=== PATIENT | female | born 1960 | race Caucasian/White ===

== ENCOUNTER → 2019-03-14 | Outpatient (CLI) | payer SELFPAY ==
--- NOTE | 2019-03-17 09:13 | PCVCIMAG ---
APPROVED REPORT Study performed: 03/14/2019 12:14:52 Exam: Stress Echocardiogram Indication: mitral valve prolapse, palpitations, dyspnea on exertion Patient Location: Echo lab Stress Nurse: Adrienne Barlow RN Status: routine Ht: 5 ft 8 in HR: 78 bpm BP: 120/72 mmHg Rhythm: NSR Procedure The patient underwent an Exercise Stress Test using the Elpidio Protocol. Blood pressure, heart rate, and EKG were monitored. An Echocardiogram was performed by education technician in four stages in quad fashion. At peak stress, four selected images were obtained and placed side by side with resting images for comparison. Stress Test Details Stress Test: Exercise stress testing was performed using a Elpidio protocol. HR Resting HR: 78 bpmMax Heart Rate (APMHR): 162 bpm Max HR Achieved: 155 bpmTarget HR (85% APMHR): 137 bpm % of APMHR: 95 Recovery HR: 92 bpm HR response to stress: Normal HR response to stress BP Resting BP: 120/72 mmHg Max BP: 130/78 mmHg Recovery BP: 110/78 mmHg BP response to stress: Normal blood pressure response to stress. ECG Resting ECG: Sinus Rhythm w/ PVCs Stress ECG: Sinus Rhythm ST Change: Normal Arrhythmia: isolated PVCs Recovery ECG: Sinus Rhythm w/ PVCs Recovery ST Change: Normal Recovery Arrhythmia: PVCs Clinical Reason for Termination: Maximal effort Stress Symptoms: Dyspnea Exercise duration: 9 min 20 sec Highest Stage Achieved: Stage 4: 4.2 mph at 16% grade. Exercise capacity: 11.2 METs Overall Exercise Capacity for Age: Normal Scale: Active Angina Score: None Stress ECG Conclusion 1. subjectively negative for ischemia 2. electricaklly negative for ischemia 3. satisfactory functional capacity Pre-Stress Echo The resting Echocardiogram showed normal left ventricular contractility with an estimated Ejection Fraction of about >55%. The resting echocardiogram demonstrated normal wall motion in all wall segments. Post-Stress Echo The stress Echocardiogram showed normal left ventricular contractility with an estimated Ejection Fraction of about 65%. Compared to rest, there were no stress-induced wall motion abnormalities. Clinical No clinical or ECG evidence for ischemia. Conclusion Clinical Response: Non-ischemic Exercise Capacity: Average Stress ECG Response: Non-ischemic Stress Echo Images: Non-ischemic The left ventricle is normal in size and wall thickness in both the rest and stress images. Mild anterior mitral valve prolapse with mild mitral regurgitation. Mild tricuspid regurgitation with PAP of 34 mmHg. Normal aortic and pulmonic regurgitation and stenosis. 1. low risk study Other Information Study Quality: Adequate <Conclusion> The left ventricle is normal in size and wall thickness in both the rest and stress images. Mild anterior mitral valve prolapse with mild mitral regurgitation. Mild tricuspid regurgitation with PAP of 34 mmHg. Normal aortic and pulmonic regurgitation and stenosis. 1. low risk study
== END | disposition home or self-care (01) ==
LOC: PCVCIMAG 12:59
PROVIDERS: ATTEND Internal Medicine
DX: I08.8 Other rheumatic multiple valve diseases (principal); Z95.4 Presence of other heart-valve replacement; Z82.49 Family history of ischemic heart disease and other diseases of the circulatory system; Z80.9 Family history of malignant neoplasm, unspecified
CPT/HCPCS: 93325; 93351